=== PATIENT | male | born 1965 | race Caucasian/White ===

== ENCOUNTER 2017-03-14 20:46 | Emergency (ER) | payer BC ==
[2017-03-14 20:53] VITALS: BP 115/72
[2017-03-14] MEDS ORDERED: predniSONE TAB* 20 MG PO ONE (21:24)
--- NOTE | 2017-03-14 21:34 | UC ---
Skin Complaint HPI - HPI Summary HPI Summary: This is a 51 yo male with preDM and HLD who presented with c/o skin rash. He first noticed the rash 2d ago after clearing brush. The rash started on his R forearm and has spread to his L wrist and R side of his abdomen. He has been taking benadryl and applying calamine lotion. No additional systemic symptoms. - History of Current Complaint Chief Complaint: UCSkin Stated Complaint: RASH - Allergy/Home Medications Allergies/Adverse Reactions: Allergies Allergy/AdvReac Type Severity Reaction Status Date / Time No Known Allergies Allergy Verified 03/14/17 20:54 Home Medications: Home Medications Calamine LOTION* 1 applic .SEE ORDER PRN 03/14/17 [History] Pravastatin (NF) [Pravachol (NF)] 03/14/17 [History] diPHENhydraMINE PO* [Benadryl PO 25 MG TAB*] 50 mg PO PRN 03/14/17 [History] Review of Systems Constitutional: Negative Skin: Rash Eyes: Negative ENT: Negative Respiratory: Negative Cardiovascular: Negative Gastrointestinal: Negative Genitourinary: Negative Motor: Negative Neurovascular: Negative Musculoskeletal: Negative Neurological: Negative Psychological: Negative Is Patient Immunocompromised?: No All Other Systems Reviewed And Are Negative: Yes PMH/Surg Hx/FS Hx/Imm Hx Endocrine History: Diabetes - pre-DM, Dyslipidemia - Surgical History Surgical History: Yes Surgery Procedure, Year, and Place: [facility]NEE SURGERIES - Family History Known Family History: Positive: None - Social History Alcohol Use: Occasionally Substance Use Type: Marijuana Smoking Status (MU): Never Smoked Tobacco Physical Exam Triage Information Reviewed: Yes Appearance: Well-Appearing Vital Signs: Initial Vital Signs Temp 97.8 F 03/14/17 20:49 Pulse 58 03/14/17 20:49 Resp 16 03/14/17 20:49 BP 115/72 03/14/17 20:49 Pulse Ox 100 03/14/17 20:49 Vital Signs Reviewed: Yes ENT Exam: Normal Neck: Positive: Supple, Nontender Respiratory: Positive: Lungs clear. Negative: Crackles, Rhonchi, Wheezing Cardiovascular Exam: Normal Cardiovascular: Positive: RRR, No Murmur Abdominal Exam: Normal Abdomen Description: Positive: Nontender, Soft Musculoskeletal: Positive: Strength Intact, ROM Intact Neurological Exam: Normal Neurological: Positive: Alert Psychological Exam: Normal Skin: Positive: Other - erythematous papular rash over L forearm, R wrist and R side of his abdomen Course/Dx - Course Course Of Treatment: This is a 51 yo gentleman who presented with c/o rash after clearing brush. The rash has continued to spread over the last 2 days. Due to wide spread and spreading nature, recommend oral steroids. - Differential Diagnoses - Skin Complaint Differential Diagnoses: Drug Rash, Eczema, Poison [place], Poison [place] - Diagnoses Provider Diagnoses: 1. Plant dermatitis Discharge - Discharge Plan Condition: Stable Disposition: HOME Prescriptions: Methylprednisolone [Medrol Dosepak 4 MG*] 4 mg PO .SEE THIAGO INSTRUCTION #1 thiago Patient Education Materials: Poison Ann (ED) Referrals: No Primary Care Phys,NOPCP [Primary Care Provider] - Additional Instructions: Instructions: 1. Take steroid pack as directed 2. Apply topical benadryl or hydrocortisone cream as needed for itching 3. Use oral benadryl 25-50 mg as needed for additional itch relief
== END 2017-03-14 21:46 | disposition home or self-care (01) ==
LOC: UCEAST 20:46
DX: L25.5 Unspecified contact dermatitis due to plants, except food (principal)
CPT/HCPCS: 99202; G0463; J7512